=== PATIENT | female | born 1990 | race Caucasian/White ===

== ENCOUNTER 2024-01-30 06:56 | Inpatient (IN) | payer OTHER ==
[~2024-01-30] VITALS: Ht 160 cm; Wt 99.1 kg
[2024-01-30] VITALS (32 sets, daily range): BP systolic 108–155; BP diastolic 59–92; PULSE 54–103; TEMP 97.9–98.4
[2024-01-30] MEDS ORDERED: PRENATAL TABLET PO (07:33)
[2024-01-30] MEDS ORDERED: NATURAL IRON65 MG (07:34)
[2024-01-30] MEDS ORDERED: LR 1,000 ML IV PRN (08:00)
--- NOTE | 2024-01-30 08:03 | NUR ---
Pt arrives ambulatory at 0710, changes into gown, EFM explained and placed. Pt reports gush of fluid prior to going to the bathroom this morning at 0615, then spotting when wiping after. Pt denies feeling contractions, and reports good movement. FHR Cat 1 on monitor, contractions noted, mild on palpation. Amnitest swab negative, SVE 1/50/-2 with bloody mucous noted on glove. Dr. Bella notified. Per physician, ROM plus done. Plan to monitor and recheck in 1 hour.
[2024-01-30] MEDS ORDERED: LR 1,000 ML IV SCH (09:15)
[2024-01-30] MEDS ORDERED: Penicillin G Potassium 5,000,000 UNITS in NS 100 ML IV ONE (09:15)
--- NOTE | 2024-01-30 09:38 | NUR ---
PT REQUESTED A BIRTHING BALL TO BOUNCE ON. PT ON BALL MAKING TRACING FHT AND CX MORE DIFFICULT.
[2024-01-30 09:57] LABS: BASO # 0.1 K/mm3 (0.0-0.2); BASO % 0.5 % (0.0-2.0); EOS # 0.1 K/mm3 (0.0-0.7); EOS % 1.2 % (0.0-4.0); GRAN # 8.8 K/mm3 (1.4-6.5); GRAN % 79.4 % (42.2-75.2); HEMATOCRIT 42.7 % (37.0-47.0); HEMOGLOBIN 14.4 g/dl (12.5-16.0); LYMPH # 1.5 K/mm3 (1.2-3.4); LYMPH % 13.6 % (20.0-51.0); MEAN CELL VOLUME 92 fl (80.0-100.0); MEAN CORPUSCULAR HEMOGLOBIN 31 pg (27-31); MEAN CORPUSCULAR HGB CONC 34 g/dl (33.0-37.0); MONO # 0.5 K/mm3 (0.1-0.6); MONO % 4.9 % (1.7-9.3); PLATELET COUNT 203 K/mm3 (130-400); RED BLOOD COUNT 4.66 M/mm3 (4.10-5.30); REDCELL DISTRIBUTION WIDTH-CV 12.8 % (11.5-14.5)
--- NOTE | 2024-01-30 11:25 | NUR ---
PT ON INTERMITTENT MONITORING FROM 1125 TO 1207. PT WAS ON BIRHTING BALL AND AMBULATING AROUND THE ROOM.
--- NOTE | 2024-01-30 11:27 | NUR ---
Pt off monitors and up to bathroom at this time. Pt plans to sit on ball and ambulate following bathroom.
[2024-01-30] MEDS ORDERED: LR & Oxytocin 500 ML IV SCH (12:45)
[2024-01-30] MEDS ORDERED: Penicillin G Potassium 2,500,000 UNITS in NS 100 ML IV SCH (13:08)
--- NOTE | 2024-01-30 13:15 | NUR ---
PT WAS IN BED IN HIGH FOWLERS WHEN FHT HAD A DECEL INTO THE 90'S. DECEL LASTED 70 SECONDS. PT WAS TURNED TO HER RIGHT LATERAL SIDE. FHT RECOVERED BUT BASELINE WAS DIFFICULT TO DIFFERINTIATE DURING THIS TIME.
[2024-01-30] MEDS ORDERED: ePHEDrine 50 MG/10 ML VIAL IV PRN (13:30)
[2024-01-30] MEDS ORDERED: Naloxone 0.4 MG/ML VIAL IV PRN ×2 (13:30→18:00)
[2024-01-30] MEDS ORDERED: diphenhydrAMINE 50 MG/ML 1 ML VIAL IV PRN (13:30)
[2024-01-30] MEDS ORDERED: diphenhydrAMINE 25 MG CAP PO PRN (13:30)
[2024-01-30] MEDS ORDERED: Ondansetron 4 MG/2 ML VIAL IV PRN (13:30)
--- NOTE | 2024-01-30 14:15 | NUR ---
PT UP AMBULATING ON UNIT. DIFFICULTY TRACING FHT AND CX DURING THIS TIME.
[2024-01-30] MEDS ORDERED: ROPivacaine PF 0.2% 200 ML IV ONE (15:16)
--- NOTE | 2024-01-30 15:24 | NUR ---
1500- TY CALLED FOR A PT REQUESTED EPIDURAL. 1519- TY AT BEDSIDE TALKING WITH PT ABOUT SIDE EFFECTS OF EPIDURAL. PT SITTING AT THE SIDE OF THE BED. O2 AND BP MONITORS ON. 1524- SINGLE SHOT. PT WAS REPOSTIONED TO WEDGE LEFT. PT TOELRATED THE PROCEEDURE WELL.
--- NOTE | 2024-01-30 15:40 | NUR ---
154- DR OTOOLE AT BEDSIDE. SVE . AROM AT THIS TIME, CLEAR BUT BLOODY FLUID NOTED. 154- LOST FHT. DR OTOOLE CAME IN AND OFFERED TO PLACE AN FSE. FHT RECOVERED BRIEFLY, THEN DECELED INTO THE 60'S. 155- PIT WAS STOPPED. 155- O2 APPLIED TO PT AT 10 LITERS. 155- SVE BY DR OTOOLE . PT'S PB WAS 108/73, EPHEDRINE GIVEN. 1553- PT WAS MOVED INTO HANDS AND KNEES. 1555- EPHEDRINE GIVEN AGAIN. AT THIS POINT FHT BEGAN TO RECOVER.PT REMAINED IN HANDS AND KNEES FOR SEVERAL MINUTES AND THEN WAS PLACED IN LL.
--- NOTE | 2024-01-30 17:24 | NUR ---
1627- DR OTOOLE AT BEDSIDE. SVE COMPLETE/+2. 1635- STRAIGHT CATH TO EMPTY PT'S BLADDER. 200 MLS OF URINE OUT. 1641- PT BEGAN PUSHING. FHT HAD A VARIABLE DECELED TO 60, BUT RECOVERED. ALTERNATED PUSHING EVERY OTHER CX. 164- BEAGAN PUSHING WITH TUG-O-WAR. 172- DR OTOOLE AT BEDSIDE FOR DELIVERY. 172- SPONTANEOUS VAGINAL DELIVERY OF A HEALTHY BABY GIRL. NUCHAL X1. WAS UNTANGLED FROM CORD AND PLACE ON MOTHERS ABDOMIN. CARE OF INFANT WAS TAKEN OVER BY NURSERY NURSE LEXUS. CORD WAS CLAMPED AND CUT BY MOTHER. WAS WIPED AND STIMULATED. CRY WAS SPONTANEOUS. 1730- SPONTANEOUS VAGINAL DELIVERY OF PLACENTA. SECOND DEGREE LACERATION REPAIRED BY DR OTOOLE. PITOCIN STARTED PER POLICY. VS WNL. BLEEDING MINIMAL. PT REPOSITIONED.
[2024-01-30] MEDS ORDERED: Ibuprofen 800 MG TAB PO SCH (18:00)
[2024-01-30] MEDS ORDERED: Witch Hazel 50% Pads Bulk TUB TP PRN (18:00)
[2024-01-30] MEDS ORDERED: Phenylephrine/Mineral Oil/Petrolatum 57 GM TUBE RC PRN (18:00)
[2024-01-30] MEDS ORDERED: Mag/Al Hydrox/Simeth Susp 30 ML CUP PO PRN (18:00)
[2024-01-30] MEDS ORDERED: Magnes Hydrox (MOM) 80 MG/ML 30 ML CUP PO PRN (18:00)
[2024-01-30] MEDS ORDERED: Acetaminophen 500 MG TAB PO SCH (18:00)
[2024-01-30] MEDS ORDERED: Measles/Mumps/Rubella Virus Vaccine Live w Diluent 0.5 ML VIAL SQ SCH (18:00)
[2024-01-30] MEDS ORDERED: Loratadine 10 MG TAB PO PRN (18:00)
[2024-01-30] MEDS ORDERED: traZODone 50 MG TAB PO PRN (21:00)
[2024-01-31] VITALS: BP 133/72; PULSE 56; TEMP 97.9
[2024-01-31 04:45] VITALS: BP 126/69; PULSE 71; TEMP 97.7
[2024-01-31] MEDS ORDERED: Sennosides/Docusate 8.6-50 MG TAB PO SCH (08:00)
[2024-01-31 20:49] VITALS: BP 123/73; PULSE 69; TEMP 97.9
[2024-02-01] MEDS ORDERED: IBU800 M1 PO (07:40)
[2024-02-01 08:33] VITALS: BP 128/73; PULSE 60; TEMP 97.5
== END 2024-02-01 12:30 | disposition home or self-care (01) | DRG 806 ==
LOC: LDRO 06:56 → LDR 09:08 → OB 09:08
PROVIDERS: Student in an Organized Health Care Education/Training Program; ADMIT Obstetrics & Gynecology
PROC: 10E0XZZ Delivery of Products of Conception, External Approach (ICD-10-PCS; principal; 2024-01-30)
PROC: 0KQM0ZZ Repair Perineum Muscle, Open Approach (ICD-10-PCS; 2024-01-30)
PROC: 0UQGXZZ Repair Vagina, External Approach (ICD-10-PCS; 2024-01-30)
DX: O99.824 Streptococcus B carrier state complicating childbirth (principal); K50.90 Crohn's disease, unspecified, without complications; Z37.0 Single live birth; Z3A.37 37 weeks gestation of pregnancy; O70.1 Second degree perineal laceration during delivery; O99.214 Obesity complicating childbirth; O99.02 Anemia complicating childbirth; O99.62 Diseases of the digestive system complicating childbirth
CPT/HCPCS: J2540; J2590; J2795; J7120